=== PATIENT | female | born 1960 | race Caucasian/White ===

== ENCOUNTER 2020-12-20 17:05 | Inpatient (IN) | payer MEDICAID, SELFPAY ==
--- NOTE | ~2020-12-20 | CT_ITS ---
EXAMINATION: CT ABDOMEN AND PELVIS WITHOUT CONTRAST CLINICAL INFORMATION: Abdominal pain. Bowel obstruction. COMPARISON: None TECHNIQUE: Multidetector volumetric imaging was performed from the superior aspect of the liver through the pubic symphysis. Sagittal and coronal reformatted images were obtained on the technologist's workstation. This CT examination was performed using dose optimization techniques as appropriate, variously including the following: *Automated exposure control *Adjustment of mA and/or kV according to patient size (this includes techniques or standardized protocols for targeted exams where dose is matched to indication/reason for exam; i.e. extremities or head) *Use of iterative reconstruction technique DLP: 931 mGy-cm FINDINGS: LUNG BASES: The visualized lung bases are unremarkable. LIVER, GALLBLADDER, AND BILIARY TREE: The liver is normal in size, shape, and attenuation. No focal hepatic lesion or biliary ductal dilatation is present. Status post cholecystectomy. PANCREAS: Unremarkable. SPLEEN: Unremarkable. ADRENAL GLANDS: Unremarkable. KIDNEYS AND URETERS: The kidneys are normal in size, shape, and attenuation. No hydronephrosis, hydroureter, or calculi seen. No perinephric stranding. BLADDER: Unremarkable. GASTROINTESTINAL TRACT: There is fecal impaction in the rectum sigmoid. At the level the hips the colon measures 9.7 cm transverse and is impacted with large volume of stool. There is mild thickening of the bowel wall and there is edema in the presacral space. These changes suggest stercoral colitis. There is a large volume of stool throughout the colon. The sigmoid colon is redundant and distended to a diameter about 8 cm without bowel wall edema. Indeed there is no other area of bowel wall edema or thickening within in the lower pelvis. The cecum measures 6 cm transverse. No dilatation of the small bowel. There is a surgical anastomosis of the mid small bowel. Status post gastric bypass surgery. There is a small hiatal hernia. The appendix is not visualized. ABDOMINAL WALL: No ventral wall hernia. Surgical clips at the mid abdominal wall. Soft tissue calcifications in the gluteal areas bilaterally involving the subcutaneous tissue likely injection granulomas. LYMPH NODES: Normal. VASCULAR: Unremarkable. PELVIC VISCERA: Unremarkable. OSSEOUS STRUCTURES: Multilevel degenerative spondylosis of the spine. CT/CT abdomen pelvis wo con IMPRESSION: 1. Fecal impaction with evidence of stercoral colitis at the rectum sigmoid. Distended colon with large volume of stool and gas. 2. Status post gastric bypass surgery. 3. Status post Cholecystectomy.
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
[2020-12-20 17:32] VITALS: BP 136/89; BP 138/70; BP 142/78; PULSE 77; PULSE 80; PULSE 88; RESP 14; RESP 20; TEMP 37.9; O2SAT 97; O2SAT 98; BMI 34.4
[2020-12-20 18:27] LABS: MANUAL DIFF FLAG NO
[2020-12-20 18:43] LABS: INTERNATIONAL NORM RATIO 1.1 (0.9-1.1); Prothrombin Time 12.7 SEC (10.8-13.0)
[2020-12-20 18:44] LABS: Basophils Absolute Auto 0.1 X10*3/uL (0.0-0.2); Basophils Percent Auto 0.5 % (0-2); Eosinophils Percent Auto 0.4 % (0-4); Hematocrit 35.5 % (37-47); Hemoglobin 11.1 g/dl (12.0-16.0); Imm Gran Abs Auto 0.04 X10*3/uL (0.00-0.03); Imm Gran Pct Auto 0.4 % (0.0-0.4); Lymphocytes Absolute Auto 2.8 X10*3/uL (1.2-4.9); Lymphocytes Percent Auto 30.6 % (20-40); Mean Corpuscular HGB Conc 31.3 g/dl (31.0-35.0); Mean Corpuscular Hemoglobin 25.3 pg (27.0-33.0); Mean Corpuscular Volume 81.1 fL (80-98); Mean Platelet Volume 9.8 fL (9.4-12.3); Monocytes Absolute Auto 0.9 X10*3/uL (0.1-1.2); Monocytes Percent Auto 10.3 % (2-11); Neutrophils Absolute Auto 5.3 X10*3/uL (2.0-8.3); Neutrophils Percent Auto 57.8 % (45-73); Platelet Count 385 X10*3/uL (160-400); Red Blood Count 4.38 X10*6/uL (4.20-5.50); Red Cell Distribution Width 16.1 % (11.0-16.0); White Blood Count 9.2 X10*3/uL (4.8-10.8)
[2020-12-20 18:45] LABS: Partial Thromboplastin Time 37.5 SEC (24.1-38.0)
[2020-12-20 18:49] LABS: OBS Int Ctl Valid YES; OBS1 NEGATIVE (NEGATIVE)
[2020-12-20] MEDS: 0.9 % Sodium Chloride 1,000 ML 999 ML IV (18:53)
[2020-12-20 18:57] LABS: Alanine Aminotransferase 7 U/L (0-31); Albumin Level 3.7 g/dL (3.5-5.0); Alkaline Phosphatase 89 U/L (39-117); Anion Gap 14 (12-20); Aspartate Amino Transferase 8 U/L (5-31); Bilirubin Direct < 0.2 mg/dL (0.0-0.5); Bilirubin Total 0.3 mg/dL (0.0-1.0); Blood Urea Nitrogen 17 mg/dL (9-16); Calcium 8.8 mg/dL (8.4-10.2); Carbon Dioxide 23 mmol/L (22-29); Chloride 107 mmol/L (96-108); Creatinine Clr Calc Pharmacy 105.7; Estimated Glomerular Filt Rate > 60; Glucose Random 114 mg/dL (60-115); Potassium 3.4 mmol/L (3.3-5.1); Sodium 141 mmol/L (135-145)
[2020-12-20 19:35] LABS: Lipase 17 U/L (8-78)
[2020-12-20] MEDS: Pantoprazole Sodium 40 MG/10 ML VIAL 80 MG IVPUSH (19:36)
--- NOTE | 2020-12-20 19:37 | PC.NURSE ---
pt difficult stick, iv inserted, labs drawn, ivf running per order, pt medicated per order, electronic device monitor nsr 80s, vss, will continue to monitor.
[2020-12-20 19:45] LABS: COVID-19 Test Negative (Negative)
[2020-12-20 20:39] VITALS: BP 145/89; PULSE 79; RESP 14; O2SAT 95
[2020-12-20] MEDS: LORazepam 2 MG/ML VIAL 1 MG IVPUSH (21:21)
--- NOTE | 2020-12-20 21:21 | PC.NURSE ---
patient medicated per order
--- NOTE | 2020-12-20 21:41 | PM.IMHP ---
History of Present Illness Date of Service: 12/20/20 Chief Complaint: Coffee-ground emesis 60-year-old female with a past medical history of cerebral palsy, cognitive delay, obesity, schizoaffective disorder, borderline personality disorder, history of paralytic ileus, migraines, GERD, history of chronic back pain/leg pain, asthma, anemia, history of recurrent intertrigo, urinary incontinence, dysphagia, history of esophagitis, history of gastric body erosions, peptic ulcer disease status post Billroth procedure presented to the hospital today with a chief complaint of coffee-ground emesis. Patient is a poor historian. Most of the history obtained from the ER staff and records. Tried to reach the patient's longterm facility [facility]; I also called patient's guardian Milla, left voice message. Per ER team patient had like 4 episodes of coffee-ground emesis; patient mentions she has abdominal discomfort. Appears to be comfortable alert and awake. ER course: Per ER team patient's stool guaiac was negative hemoglobin stable at 11.4. Vitals stable. Given pantoprazole. Admitted to the hospital for further management ER team mentioned that this spoke to Dr. sheehan from Gastroenterology who mention to keep the patient NPO for possible EGD in the morning [facility] Medical History Abscess of toe, right Anemia Asthma Atherosclerosis Borderline personality disorder Cerebral palsy Chronic back pain Dysphagia Esophagitis GERD (gastroesophageal reflux disease) Migraines Obesity Paralytic ileus PVD (peripheral vascular disease) Schizoaffective disorder Urinary incontinence UTI (urinary tract infection) Social History Housing: Senior Living Alcohol intake: never Smoking Status: Unknown if ever smoked service: No Current occupational status: disabled Meds Allergies Allergy/AdvReac Type Severity Reaction Status Date / Time baclofen Allergy Unknown Unknown Unverified 12/20/20 21:50 Iodinated Contrast Media Allergy Unknown Unknown Verified 12/20/20 21:50 Active Medications: Current Medications Generic Name Dose Route Start Last Admin Trade Name Freq PRN Reason Stop Dose Admin Dextrose/Sodium Chloride 1,000 mls @ 100 mls/hr 12/20/20 21:45 D51/2ns IVCONT .Q10H MARK Pantoprazole Sodium 40 mg 12/21/20 06:30 Pantoprazole Sodium 40 Mg/10 Ml Vial IVPUSH BID@0630,1630 [facility] Sodium Chloride 3 ml 12/21/20 00:00 0.9 % Sodium Chloride Flush 3 Ml Syringe IVFLU QSHIFT [facility] Home Medications Medication Instructions Recorded Confirmed Last Taken Type acetaminophen 1,000 mg PO BID PRN 12/20/20 12/20/20 12/20/20 09:00 History benztropine 0.5 mg PO BID 12/20/20 12/20/20 12/20/20 09:00 History bisacodyl 5 mg PO DAILY 12/20/20 12/20/20 12/19/20 19:00 History clonazepam [Klonopin] 0.5 mg PO BID 12/20/20 12/20/20 12/20/20 09:00 History divalproex [Depakote Sprinkles] 500 mg PO BID 12/20/20 12/20/20 12/20/20 09:00 History gabapentin 300 mg PO BID 12/20/20 12/20/20 12/20/20 09:00 History haloperidol 10 mg PO TID 12/20/20 12/20/20 12/20/20 13:00 History mirtazapine [Remeron] 15 mg PO DAILY 12/20/20 12/20/20 12/19/20 History perphenazine 8 mg PO DAILY 12/20/20 12/20/20 12/20/20 13:00 History perphenazine 16 mg PO DAILY 12/20/20 12/20/20 12/20/20 13:00 History Physical Exam Vital Signs and Narrative: Vital Signs: Last Vital Signs Temp 100.2 F 12/20/20 17:32 Pulse 79 12/20/20 20:39 Resp 14 12/20/20 20:39 BP 145/89 H 12/20/20 20:39 Pulse Ox 95 12/20/20 20:39 Body Mass Index 34.4 Gen: Appears be in no acute distress HEENT: NCAT, Moist mucosa. Pulmonary: Vesicular breath sounds, fair air entry CVS: Normal S1-S2 Abdomen: BS+, Soft, Nontender Extremities: Warm well perfused Neuro: Alert and awake. Results Labs CBC and Chem 7: 12/24/20 04:11 12/23/20 06:16 Labs: Laboratory Results - last 24 hr 12/20/20 12/20/20 12/20/20 18:21 18:21 18:21 MCV 81.1 MCH 25.3 L MCHC 31.3 RDW 16.1 H Plt Count 385 MPV 9.8 Immature Gran % (Auto) 0.4 Neut % (Auto) 57.8 Lymph % (Auto) 30.6 [place] % (Auto) 10.3 Eos % (Auto) 0.4 Baso % (Auto) 0.5 Lymph # (Auto) 2.8 [place] # (Auto) 0.9 Eos # (Auto) 0.0 Baso # (Auto) 0.1 Abs Immat Gran (auto) 0.04 H Absolute Neuts (auto) 5.3 Absolute Nucleated RBC 0.000 Nucleated RBC % (auto) 0.0 PT 12.7 INR 1.1 APTT 37.5 Anion Gap 14 Estim Creat Clear Calc 105.7 Estimated GFR > 60 Random Glucose 114 Calcium 8.8 Total Bilirubin 0.3 Direct Bilirubin < 0.2 AST 8 ALT 7 Alkaline Phosphatase 89 Total Protein 6.0 L Albumin 3.7 Lipase 17 Stool Occult Blood COVID-19 (INGA) COVID-19 [employer] Com Blood Type Antibody Screen 12/20/20 12/20/20 12/20/20 18:21 18:27 19:16 MCV MCH MCHC RDW Plt Count MPV Immature Gran % (Auto) Neut % (Auto) Lymph % (Auto) [place] % (Auto) Eos % (Auto) Baso % (Auto) Lymph # (Auto) [place] # (Auto) Eos # (Auto) Baso # (Auto) Abs Immat Gran (auto) Absolute Neuts (auto) Absolute Nucleated RBC Nucleated RBC % (auto) PT INR APTT Anion Gap Estim Creat Clear Calc Estimated GFR Random Glucose Calcium Total Bilirubin Direct Bilirubin AST ALT Alkaline Phosphatase Total Protein Albumin Lipase Stool Occult Blood NEGATIVE COVID-19 (INGA) Negative COVID-19 Clin Com See Note Blood Type O Positive Antibody Screen NEGATIVE Assessment and Plan (1) Coffee ground emesis: Status: Acute 60-year-old female with a past medical history of cerebral palsy, cognitive delay, mostly bed-bound, history of schizoaffective disorder, bipolar disorder, GERD, gastric body erosions, history of peptic ulcer disease status post Billroth procedure, history of chronic back pain/leg pain, history of paralytic ileus, asthma, migraine, history of UTIs presented to the hospital with a chief complaint of coffee-ground emesis. Coffee-ground emesis: Patient did not have any further episodes in the ER. H&H stable. Vitals stable. Continue IV ppi. Gastroenterology notified. NPO. IV fluids. Stool guaiac negative per ER CT abdomen pending Benign abdominal examination Hemoglobin on presentation 11.1 Serial H&H History of dysphagia: Patient is currently NPO. Speech and swallow eval. Patient on puree Diet at the care home. History of schizoaffective disorder/bipolar disorder: Continue home medications. pt is on haldol 10mg TID; EKG to check qtc Code status: Presumed full code. Patient's paperwork from the care home also mentioned full code. I tried to reach the patient's guardian Milla [phone] to reach, left voice message
--- NOTE | 2020-12-20 22:55 | PC.NURSE ---
called floor to give report, nursing staff to call back
[2020-12-20] MEDS: Dextrose 5 % and 0.45 % NaCl 1,000 ML 100 ML IVCONT (23:22)
[2020-12-21] VITALS (12 sets, daily range): BP systolic 92–142; BP diastolic 54–88; PULSE 57–93; RESP 16–20; TEMP 35.8–36.9; O2SAT 90–100; BMI 34.4
--- NOTE | 2020-12-21 | ECG_ITS ---
Test Reason : CK QTC Blood Pressure : / mmHG Vent. Rate : 061 BPM Atrial Rate : 061 BPM P-R Int : 130 ms QRS Dur : 090 ms QT Int : 452 ms P-R-T Axes : 055 008 010 degrees QTc Int : 455 ms Normal sinus rhythm Minimal voltage criteria for LVH, may be normal variant ST & T wave abnormality, consider anterior ischemia Abnormal ECG No previous ECGs available Referred By: Raul Guzman Electronically Signed By:Marquez Davila
[2020-12-21] MEDS: Pantoprazole Sodium 40 MG/10 ML VIAL IVPUSH ×2 (05:13→15:53)
--- NOTE | 2020-12-21 09:43 | MHC.CM.PN ---
Patient left a detailed message for Patient's Legal Guardian/Milla @ [phone]. Patient was formerly a LTC Resident at [facility] and when [facility] closed, she is now a LTC Resident @ [facility] (formerly [facility] CM has initiated and will follow for dc planning.[facility] paperwork is on the chart.
[2020-12-21] MEDS: Dextrose 5 % and 0.45 % NaCl 1,000 ML 100 ML IVCONT ×3 (10:01→23:16)
[2020-12-21] MEDS: 0.9 % Sodium Chloride Flush 3 ML SYRINGE IVFLUSH ×2 (10:01→15:54)
[2020-12-21] MEDS: bisacodyL 10 MG SUPP.RECT PR (10:01)
[2020-12-21] MEDS: Benztropine Mesylate 0.5 MG TABLET PO ×2 (10:25→20:23)
[2020-12-21] MEDS: Mirtazapine 15 MG TABLET PO (10:26)
[2020-12-21] MEDS: clonazePAM 0.5 MG TABLET PO ×2 (10:26→20:20)
[2020-12-21] MEDS: HaloperidoL 5 MG TABLET 10 MG PO ×2 (10:26→20:19)
[2020-12-21] MEDS: Perphenazine 8 MG TABLET 16 MG PO (10:29)
[2020-12-21] MEDS: Gabapentin 300 MG CAPSULE PO ×2 (10:29→20:20)
[2020-12-21] MEDS: Perphenazine 8 MG TABLET PO (10:30)
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
[2020-12-21 11:17] LABS: Hematocrit 33.2 % (37-47); Hemoglobin 9.9 g/dl (12.0-16.0); Mean Corpuscular HGB Conc 29.8 g/dl (31.0-35.0); Mean Corpuscular Hemoglobin 24.6 pg (27.0-33.0); Mean Corpuscular Volume 82.4 fL (80-98); NRBC Pct Auto 0.3 /100WBC (0.0-0.2); Platelet Count 320 X10*3/uL (160-400); Red Blood Count 4.03 X10*6/uL (4.20-5.50); Red Cell Distribution Width 16.1 % (11.0-16.0)
--- NOTE | 2020-12-21 11:45 | PM.EVENT ---
Event Note Date of Service: 12/21/20 Event Note: GI Consult-Full note dictated-Hx via RN, EMR, and Restaurant Expeditor Milla Duque, her guardian [phone]) or [phone](W). Imp: UGI Bleed. Presently stable. No further vomiting. Stools are brown. Abdominal exam is soft and NT, but mildly distended and tympanitic. She is having soft BM's and did receive an enema this AM. She was on omeprazole at the retirement. Her bleeding seems to have stopped. Probable bleeding from esophagitis, Jennie-Thayer tear, or PUD. Her CT describes a possible gastric bypass surgery so this may also represent an anastomotic ulcer. Rec: EGD with MAC by me or Dr. Cunningham today. Full consent obtained from her guardian, including risks of bleeding and perforation. Continue to follow Hgb, continue PPI. Continue enemas re: findings of constipation/impaction/colon distention. Agree with surgical consult. Thanks
[2020-12-21 11:52] LABS: Anion Gap 12 (12-20); Blood Urea Nitrogen 17 mg/dL (9-16); Calcium 8.6 mg/dL (8.4-10.2); Carbon Dioxide 22 mmol/L (22-29); Chloride 110 mmol/L (96-108); Creatinine Clr Calc Pharmacy 114.3; Estimated Glomerular Filt Rate > 60; Glucose Random 106 mg/dL (60-115); Potassium 3.3 mmol/L (3.3-5.1); Sodium 141 mmol/L (135-145)
--- NOTE | 2020-12-21 11:58 | PM.CNGS ---
History of Present Illness Consult details Consult date: 12/21/20 Requesting physician: Zurdo Kapoor Narrative: 60-year-old female patient admitted to [facility] after developing coffee-ground emesis. She has a past history of cerebral palsy, cognitive delay, schizoaffective disorder, borderline personality disorder in previous history of paralytic ileus an apparent previous abdominal surgery including a possible Vincenzo-en-Y gastrojejunostomy. Patient is a poor historian is not exactly clear in the timing of her condition. She underwent a workup in the emergency department including a CT of the abdomen and pelvis which indicated a large stool burden within the rectum. Surgical consultation was requested for disimpaction. Review of Systems Review of Systems: Yes Unobtainable due to mental condition PMFSH Past Medical History Medical History Abscess of toe, right Anemia Asthma Atherosclerosis Borderline personality disorder Cerebral palsy Chronic back pain Dysphagia Esophagitis GERD (gastroesophageal reflux disease) Migraines Obesity Paralytic ileus PVD (peripheral vascular disease) Schizoaffective disorder Urinary incontinence UTI (urinary tract infection) Social History Social History Housing: Residential Unable to assess alcohol history related to: Unknown Alcohol intake: never Smoking Status: Unknown if ever smoked Smoked in Last 30 Days: No Use of substances other than those prescribed or required for medical reasons: No Have you been hit, kicked, punched, or otherwise hurt by someone within the past year? If so, by whom?: No Do you feel safe in your current relationship?: Yes Is there a partner from a previous relationship who is making you feel unsafe now?: Yes Are you made to feel afraid or neglected: No Advance Directives: No Advance Directives Information Provided: No Do you have thoughts of harming others: None Do you have a plan to hurt others: No Plan Recently lost weight without trying: Unsure service: No Current occupational status: disabled Meds Allergies Allergy/AdvReac Type Severity Reaction Status Date / Time baclofen Allergy Unknown Unknown Unverified 12/20/20 21:50 Iodinated Contrast Media Allergy Unknown Unknown Verified 12/20/20 21:50 Active Medications: Current Medications Generic Name Dose Route Start Last Admin Trade Name Freq PRN Reason Stop Dose Admin Benztropine Mesylate 0.5 mg 12/21/20 09:00 12/21/20 10:25 Benztropine Mesylate 0.5 Mg Tablet PO 0.5 mg BID MARK Administration Clonazepam 0.5 mg 12/21/20 09:00 12/21/20 10:26 Clonazepam 0.5 Mg Tablet PO 0.5 mg BID MARK Administration Divalproex Sodium 500 mg 12/21/20 09:00 12/21/20 10:30 Divalproex Sodium Sprinkles 125 Mg Cap PO Not Given BID MARK Gabapentin 300 mg 12/21/20 09:00 12/21/20 10:29 Gabapentin 300 Mg Capsule PO 300 mg BID MARK Administration Haloperidol 10 mg 12/21/20 09:00 12/21/20 10:26 Haloperidol 5 Mg Tablet PO 10 mg TID MARK Administration Dextrose/Sodium Chloride 1,000 mls @ 100 mls/hr 12/20/20 21:45 12/21/20 10:01 D51/2ns IVCONT 100 mls/hr .Q10H MARK Administration Mirtazapine 15 mg 12/21/20 09:00 12/21/20 10:26 Mirtazapine 15 Mg Tablet PO 15 mg DAILY MARK Administration Pantoprazole Sodium 40 mg 12/21/20 06:30 12/21/20 05:13 Pantoprazole Sodium 40 Mg/10 Ml Vial IVPUSH 40 mg BID@0630,1630 MARK Administration Perphenazine 8 mg 12/21/20 09:00 12/21/20 10:30 Perphenazine 8 Mg Tablet PO 8 mg DAILY MARK Administration Perphenazine 16 mg 12/21/20 09:00 12/21/20 10:29 Perphenazine 8 Mg Tablet PO 16 mg DAILY MARK Administration Sodium Chloride 3 ml 12/21/20 00:00 12/21/20 10:01 0.9 % Sodium Chloride Flush 3 Ml Syringe IVFLUSH 3 ml QSHIFT MARK Administration Home Medications Medication Instructions Recorded Confirmed Last Taken Type acetaminophen [Tylenol Extra 1,000 mg PO BID PRN 12/20/20 12/20/20 12/20/20 09:00 History Strength] benztropine [Cogentin] 0.5 mg PO BID 12/20/20 12/20/20 12/20/20 09:00 History bisacodyl 5 mg PO DAILY 12/20/20 12/20/20 12/19/20 19:00 History clonazepam [Klonopin] 0.5 mg PO BID 12/20/20 12/20/20 12/20/20 09:00 History divalproex [Depakote Sprinkles] 500 mg PO BID 12/20/20 12/20/20 12/20/20 09:00 History gabapentin 300 mg PO BID 12/20/20 12/20/20 12/20/20 09:00 History haloperidol [Haldol] 10 mg PO TID 12/20/20 12/20/20 12/20/20 13:00 History mirtazapine [Remeron] 15 mg PO DAILY 12/20/20 12/20/20 12/19/20 History omeprazole 20 mg PO BID 12/20/20 12/20/20 12/20/20 09:00 History perphenazine 8 mg PO DAILY 12/20/20 12/20/20 12/20/20 13:00 History perphenazine 16 mg PO DAILY 12/20/20 12/20/20 12/20/20 13:00 History Physical Exam Vital Signs: Vital Signs: Last Vital Signs Temp 98 F 12/21/20 07:14 Pulse 64 12/21/20 07:14 Resp 19 12/21/20 07:14 BP 113/73 12/21/20 07:14 Pulse Ox 99 12/21/20 07:14 Body Mass Index 34.4 Const: General: cooperative, no acute distress and awake Nutritional Appearance: obese Limitations: behavioral limitations Neck: Neck: Yes normal visual inspection and Yes supple Resp: Effort & Inspection: normal respiratory effort, no stridor, not tachypneic and no tracheal deviation Auscultation: no wheezes GI: Inspection: Yes distended, Yes Abdominal panniculus present and Yes scar Palpation (GI): nontender, no guarding and not rigid Percussion: Yes normal to percussion Skin: General skin exam: no rashes or lesions noted Extrem: General: Yes edema Results Labs Result diagrams: 12/21/20 10:57 12/21/20 10:57 Labs: Abnormal lab results 12/20/20 12/20/20 12/21/20 Range/Units 18:21 18:21 10:57 RBC 4.03 L (4.20-5.50) X10*6/uL Hgb 11.1 L 9.9 L (12.0-16.0) g/dl Hct 35.5 L 33.2 L (37-47) % MCH 25.3 L 24.6 L (27.0-33.0) pg MCHC 29.8 L (31.0-35.0) g/dl RDW 16.1 H 16.1 H (11.0-16.0) % Abs Immat Gran (auto) 0.04 H (0.00-0.03) X10*3/uL Absolute Nucleated RBC 0.020 H (0.0-0.012) X10*3/uL Nucleated RBC % (auto) 0.3 H (0.0-0.2) /100WBC Chloride (96-108) mmol/L BUN 17 H (9-16) mg/dL Creatinine (0.5-1.4) mg/dL Total Protein 6.0 L (6.5-8.0) g/dL 12/21/20 Range/Units 10:57 RBC (4.20-5.50) X10*6/uL Hgb (12.0-16.0) g/dl Hct (37-47) % MCH (27.0-33.0) pg MCHC (31.0-35.0) g/dl RDW (11.0-16.0) % Abs Immat Gran (auto) (0.00-0.03) X10*3/uL Absolute Nucleated RBC (0.0-0.012) X10*3/uL Nucleated RBC % (auto) (0.0-0.2) /100WBC Chloride 110 H (96-108) mmol/L BUN 17 H (9-16) mg/dL Creatinine 0.49 L (0.5-1.4) mg/dL Total Protein (6.5-8.0) g/dL Short CBC 12/20/20 12/21/20 Range/Units 18:21 10:57 WBC 9.2 7.0 (4.8-10.8) X10*3/uL Hgb 11.1 L 9.9 L (12.0-16.0) g/dl Hct 35.5 L 33.2 L (37-47) % Plt Count 385 320 (160-400) X10*3/uL BMP 12/20/20 12/21/20 18:21 10:57 Sodium 141 141 Potassium 3.4 3.3 Chloride 107 110 H Carbon Dioxide 23 22 BUN 17 H 17 H Creatinine 0.53 0.49 L Calcium 8.8 8.6 Liver Function 12/20/20 Range/Units 18:21 Total Bilirubin 0.3 (0.0-1.0) mg/dL Direct Bilirubin < 0.2 (0.0-0.5) mg/dL AST 8 (5-31) U/L ALT 7 (0-31) U/L Alkaline Phosphatase 89 (39-117) U/L Albumin 3.7 (3.5-5.0) g/dL All other labs normal. EXAMINATION: CT ABDOMEN AND PELVIS WITHOUT CONTRAST CLINICAL INFORMATION: Abdominal pain. Bowel obstruction. COMPARISON: None TECHNIQUE: Multidetector volumetric imaging was performed from the superior aspect of the liver through the pubic symphysis. Sagittal and coronal reformatted images were obtained on the technologist's workstation. This CT examination was performed using dose optimization techniques as appropriate, variously including the following: *Automated exposure control *Adjustment of mA and/or kV according to patient size (this includes techniques or standardized protocols for targeted exams where dose is matched to indication/reason for exam; i.e. extremities or head) *Use of iterative reconstruction technique DLP: 931 mGy-cm FINDINGS: LUNG BASES: The visualized lung bases are unremarkable. LIVER, GALLBLADDER, AND BILIARY TREE: The liver is normal in size, shape, and attenuation. No focal hepatic lesion or biliary ductal dilatation is present. Status post cholecystectomy. PANCREAS: Unremarkable. SPLEEN: Unremarkable. ADRENAL GLANDS: Unremarkable. KIDNEYS AND URETERS: The kidneys are normal in size, shape, and attenuation. No hydronephrosis, hydroureter, or calculi seen. No perinephric stranding. BLADDER: Unremarkable. GASTROINTESTINAL TRACT: There is fecal impaction in the rectum sigmoid. At the level the hips the colon measures 9.7 cm transverse and is impacted with large volume of stool. There is mild thickening of the bowel wall and there is edema in the presacral space. These changes suggest stercoral colitis. There is a large volume of stool throughout the colon. The sigmoid colon is redundant and distended to a diameter about 8 cm without bowel wall edema. Indeed there is no other area of bowel wall edema or thickening within in the lower pelvis. The cecum measures 6 cm transverse. No dilatation of the small bowel. There is a surgical anastomosis of the mid small bowel. Status post gastric bypass surgery. There is a small hiatal hernia. The appendix is not visualized. ABDOMINAL WALL: No ventral wall hernia. Surgical clips at the mid abdominal wall. Soft tissue calcifications in the gluteal areas bilaterally involving the subcutaneous tissue likely injection granulomas. LYMPH NODES: Normal. VASCULAR: Unremarkable. PELVIC VISCERA: Unremarkable. OSSEOUS STRUCTURES: Multilevel degenerative spondylosis of the spine. CT/CT abdomen pelvis wo con IMPRESSION: 1. Fecal impaction with evidence of stercoral colitis at the rectum sigmoid. Distended colon with large volume of stool and gas. 2. Status post gastric bypass surgery. 3. Status post Cholecystectomy. Dictated By:SIA MARTINEZ MDSigned By:<Electronically signed by SIA MARTINEZ MD in OV>12/20/20 5490 Assessment and Plan (1) Fecal impaction of rectum: Status: Acute 60-year-old female patient with multiple medical problems and a long history of paralytic ileus now presenting with coffee-ground emesis found to have a large stool burden in the rectum suggestive of a fecal impaction. I discussed this finding with the patient and she expressed understanding. I recommended a trial of disimpaction and she agrees to proceeding. I will return later today to attempt fecal disimpaction. (2) Proctitis: Status: Acute
--- NOTE | 2020-12-21 12:45 | MHC.SLORD ---
Speech Language Pathology Order Status: Order for bedside dysphagia evaluation received. VEGETABLE HARVEST WORKER spoke with RN this morning. Per RN, patient is NPO for EGD. Was not yet seen by [email or web address]. VEGETABLE HARVEST WORKER to check in later this afternoon RE: status of order.
--- NOTE | 2020-12-21 14:14 | CONS_ITS ---
DATE OF SERVICE: 12/21/2020 REASON FOR CONSULTATION: Upper GI bleeding. HISTORY OF PRESENT ILLNESS: This has been obtained from the patient's nurse, medical record, and from her guardian. The patient is a 60-year-old female, who resides at a skilled nursing with an underlying diagnosis of cerebral palsy and schizoaffective disorder. According to the chart, she has had a history of GI bleeding in the past, but no details are available in that regard. According to the CAT scan report, she may have had a gastric bypass as well, but again no definitive details are known in that regard. In any event, she had some episodes of coffee-grounds emesis at the skilled nursing and was transferred to the ER. In the ER, she had no further vomiting. She was hemodynamically stable. Subsequent to admission, she has had no further vomiting. Her stools have been brown and without any melena nor hematochezia. Her CAT scan did show evidence of some impaction and colonic distention. She did receive at least 1 enema here. According to the nurse, she has been putting out bowel movements, which were soft and again without any sign of bleeding. She has remained hemodynamically stable. Her blood count on arrival was 11.1 and this morning is 9.9. MEDICATIONS: Her medications at the skilled nursing included omeprazole and I do not see any aspirin nor NSAIDs on her medication list. Her medications here in the hospital include IV Protonix, Cogentin, Dulcolax suppository, clonazepam, Depakote, gabapentin, Haldol, Ativan p.r.n., Remeron, and Trilafon. PAST MEDICAL HISTORY: Reported schizoaffective disorder. Asthma. Cerebral palsy. History of anemia. Reflux. Obesity. Peripheral vascular disease. Again, according to the CAT scan, she may have had a gastric bypass, but there was no definitive documentation of that. SOCIAL HISTORY: She lives in a skilled nursing. She does not smoke nor use alcohol. FAMILY HISTORY: Not available. REVIEW OF SYSTEMS: Not available. PHYSICAL EXAMINATION: GENERAL: The patient is alert and comfortable appearing female, in no distress. She does answer some questions, but is not a good historian at all. SKIN: Warm and dry. HEENT: Anicteric sclerae. NECK: Supple. CHEST: Clear. CARDIAC: Normal S1 and S2. ABDOMEN: Soft with some diminished bowel sounds. The abdomen is nontender, but it is mildly distended and somewhat tympanitic. LABORATORY DATA: As above. White blood cell count is 7000. Normal electrolytes. BUN was 17 yesterday and is 17 today. Creatinine 0.5. LFTs are normal. Albumin 3.7, lipase 17. Her CAT scan from yesterday describes a fecal impaction with some predominantly left-sided colonic distention up to 9.7 cm with some evidence of possible edema of the colon wall. The cecum measured 6 cm. There was no free air. She is status post cholecystectomy according to the CAT scan as well. IMPRESSION: Given the patient's presentation with this upper GI bleeding, this could represent upper GI bleeding from esophagitis, Jennie-Thayer tear, ulcer disease, and possible anastomotic ulcer if indeed she had a gastric bypass. At this point, she appears stable. However, I would recommend upper endoscopy prior to her discharge to have a better idea how best to treat her long-term. This has been discussed with her guardian, Navigation Teacher Milla Duque, and full consent has been obtained from her for the upper endoscopy, including risks of bleeding and perforation. I did advise her that this would be done either by myself or Dr. Cunningham and will be done with monitored anesthesia care. In the meantime, I would continue her proton pump inhibitor and follow her hemoglobin. In regard to the finding of the fecal impaction, I would continue bowel cleanouts with enemas and suppositories. Once we have done her upper endoscopy and things are stable, we might be able to start her on some oral bowel cleanout as well. I would agree with a surgical consultation if need be for any possible need for disimpaction. Again, this has all been reviewed with her legal guardian, wheel worker, Milla Duque. Her best number to reach her is the mobile number, . Her work number is [phone]. Thank you for this consultation. MD SHAUNA Degroot/DUSTIN / [phone] JENNI
--- NOTE | 2020-12-21 14:16 | HO.ANESPROP2 ---
[facility] Active Problems Active Problems: All Active Problems (Updated 12/21/20 @ 13:07 by Ricardo Le MD) Proctitis (Acute) Fecal impaction of rectum (Acute) Coffee ground emesis (Acute) Past Medical History Medical History Abscess of toe, right Anemia Asthma Atherosclerosis Borderline personality disorder Cerebral palsy Chronic back pain Dysphagia Esophagitis GERD (gastroesophageal reflux disease) Migraines Obesity Paralytic ileus PVD (peripheral vascular disease) Schizoaffective disorder Urinary incontinence UTI (urinary tract infection) Social History Social History Housing: Residential Unable to assess alcohol history related to: Unknown Alcohol intake: never Smoking Status: Unknown if ever smoked Smoked in Last 30 Days: No Use of substances other than those prescribed or required for medical reasons: No Have you been hit, kicked, punched, or otherwise hurt by someone within the past year? If so, by whom?: No Do you feel safe in your current relationship?: Yes Is there a partner from a previous relationship who is making you feel unsafe now?: Yes Are you made to feel afraid or neglected: No Advance Directives: No Advance Directives Information Provided: No Do you have thoughts of harming others: None Do you have a plan to hurt others: No Plan Recently lost weight without trying: Unsure service: No Current occupational status: disabled Meds Allergies Allergy/AdvReac Type Severity Reaction Status Date / Time baclofen Allergy Unknown Unknown Unverified 12/20/20 21:50 Iodinated Contrast Media Allergy Unknown Unknown Verified 12/20/20 21:50 Active Medications: Current Medications Generic Name Dose Route Start Last Admin Trade Name Freq PRN Reason Stop Dose Admin Benztropine Mesylate 0.5 mg 12/21/20 09:00 12/21/20 10:25 Benztropine Mesylate 0.5 Mg Tablet PO 0.5 mg BID MARK Administration Clonazepam 0.5 mg 12/21/20 09:00 12/21/20 10:26 Clonazepam 0.5 Mg Tablet PO 0.5 mg BID MARK Administration Divalproex Sodium 500 mg 12/21/20 09:00 12/21/20 10:30 Divalproex Sodium Sprinkles 125 Mg PO Not Given BID MARK Gabapentin 300 mg 12/21/20 09:00 12/21/20 10:29 Gabapentin 300 Mg Capsule PO 300 mg BID MARK Administration Haloperidol 10 mg 12/21/20 09:00 12/21/20 10:26 Haloperidol 5 Mg Tablet PO 10 mg TID MARK Administration Dextrose/Sodium Chloride 1,000 mls @ 100 mls/hr 12/20/20 21:45 12/21/20 10:01 D51/2ns IVCONT 100 mls/hr .Q10H MARK Administration Mirtazapine 15 mg 12/21/20 09:00 12/21/20 10:26 Mirtazapine 15 Mg Tablet PO 15 mg DAILY MARK Administration Pantoprazole Sodium 40 mg 12/21/20 06:30 12/21/20 05:13 Pantoprazole Sodium 40 Mg/10 Ml Vial IVPUSH 40 mg BID@0630,1630 MARK Administration Perphenazine 8 mg 12/21/20 09:00 12/21/20 10:30 Perphenazine 8 Mg Tablet PO 8 mg DAILY MARK Administration Perphenazine 16 mg 12/21/20 09:00 12/21/20 10:29 Perphenazine 8 Mg Tablet PO 16 mg DAILY MARK Administration Sodium Chloride 3 ml 12/21/20 00:00 12/21/20 10:01 0.9 % Sodium Chloride Flush 3 Ml Syringe IVFLUSH 3 ml QSHIFT MARK Administration Home Medications Medication Instructions Recorded Confirmed Last Taken Type acetaminophen [Tylenol Extra 1,000 mg PO BID PRN 12/20/20 12/20/20 12/20/20 09:00 History Strength] benztropine [Cogentin] 0.5 mg PO BID 12/20/20 12/20/20 12/20/20 09:00 History bisacodyl 5 mg PO DAILY 12/20/20 12/20/20 12/19/20 19:00 History clonazepam [Klonopin] 0.5 mg PO BID 12/20/20 12/20/20 12/20/20 09:00 History divalproex [Depakote Sprinkles] 500 mg PO BID 12/20/20 12/20/20 12/20/20 09:00 History gabapentin 300 mg PO BID 12/20/20 12/20/20 12/20/20 09:00 History haloperidol [Haldol] 10 mg PO TID 12/20/20 12/20/20 12/20/20 13:00 History mirtazapine [Remeron] 15 mg PO DAILY 12/20/20 12/20/20 12/19/20 History omeprazole 20 mg PO BID 12/20/20 12/20/20 12/20/20 09:00 History perphenazine 8 mg PO DAILY 12/20/20 12/20/20 12/20/20 13:00 History perphenazine 16 mg PO DAILY 12/20/20 12/20/20 12/20/20 13:00 History Exam Exam Date and Time: December 21, 2020 1416 Height,Weight and Vital Signs: Height 5 ft Weight 80.1 kg Last Vital Signs Temp 98.1 F 12/21/20 13:31 Pulse 65 12/21/20 13:31 Resp 18 12/21/20 13:31 BP 138/70 12/21/20 13:31 Pulse Ox 99 12/21/20 13:31 Pertinent Lab Results Pertinent Lab Results: Laboratory Tests 12/20/20 12/20/20 12/20/20 18:21 18:21 18:21 WBC 9.2 RBC 4.38 Hgb 11.1 L Hct 35.5 L MCV 81.1 MCH 25.3 L MCHC 31.3 RDW 16.1 H Plt Count 385 MPV 9.8 Immature Gran % (Auto) 0.4 Neut % (Auto) 57.8 Lymph % (Auto) 30.6 [place] % (Auto) 10.3 Eos % (Auto) 0.4 Baso % (Auto) 0.5 Lymph # (Auto) 2.8 [place] # (Auto) 0.9 Eos # (Auto) 0.0 Baso # (Auto) 0.1 Abs Immat Gran (auto) 0.04 H Absolute Neuts (auto) 5.3 Absolute Nucleated RBC 0.000 Nucleated RBC % (auto) 0.0 PT 12.7 INR 1.1 APTT 37.5 Sodium 141 Potassium 3.4 Chloride 107 Carbon Dioxide 23 Anion Gap 14 BUN 17 H Creatinine 0.53 Estim Creat Clear Calc 105.7 Estimated GFR > 60 Random Glucose 114 Calcium 8.8 Total Bilirubin 0.3 Direct Bilirubin < 0.2 AST 8 ALT 7 Alkaline Phosphatase 89 Total Protein 6.0 L Albumin 3.7 Lipase 17 Stool Occult Blood COVID-19 ([facility]) COVID-19 Clin Com Blood Type Antibody Screen 12/20/20 12/20/20 12/20/20 18:21 18:27 19:16 WBC RBC Hgb Hct MCV MCH MCHC RDW Plt Count MPV Immature Gran % (Auto) Neut % (Auto) Lymph % (Auto) [place] % (Auto) Eos % (Auto) Baso % (Auto) Lymph # (Auto) [place] # (Auto) Eos # (Auto) Baso # (Auto) Abs Immat Gran (auto) Absolute Neuts (auto) Absolute Nucleated RBC Nucleated RBC % (auto) PT INR APTT Sodium Potassium Chloride Carbon Dioxide Anion Gap BUN Creatinine Estim Creat Clear Calc Estimated GFR Random Glucose Calcium Total Bilirubin Direct Bilirubin AST ALT Alkaline Phosphatase Total Protein Albumin Lipase Stool Occult Blood NEGATIVE COVID-19 ([facility]) Negative COVID-19 [employer] Com See Note Blood Type O Positive Antibody Screen NEGATIVE 12/21/20 12/21/20 10:57 10:57 WBC 7.0 RBC 4.03 L Hgb 9.9 L Hct 33.2 L MCV 82.4 MCH 24.6 L MCHC 29.8 L RDW 16.1 H Plt Count 320 MPV 10.0 Immature Gran % (Auto) Neut % (Auto) Lymph % (Auto) [place] % (Auto) Eos % (Auto) Baso % (Auto) Lymph # (Auto) [place] # (Auto) Eos # (Auto) Baso # (Auto) Abs Immat Gran (auto) Absolute Neuts (auto) Absolute Nucleated RBC 0.020 H Nucleated RBC % (auto) 0.3 H PT INR APTT Sodium 141 Potassium 3.3 Chloride 110 H Carbon Dioxide 22 Anion Gap 12 BUN 17 H Creatinine 0.49 L Estim Creat Clear Calc 114.3 Estimated GFR > 60 Random Glucose 106 Calcium 8.6 Total Bilirubin Direct Bilirubin AST ALT Alkaline Phosphatase Total Protein Albumin Lipase Stool Occult Blood COVID-19 ([facility]) COVID-19 [employer] Com Blood Type Antibody Screen Airway Mallampati Class: II TM Dist: >3cm Neck ROM: Full Assessment and Plan Assessment Anesthesia Assessment: Anesthesia Plan Discussed and Chart Reviewed Final Anesthetic Review NPO: Yes ASA Class: III Final Preanesthetic Review: No Changes in Pt Med Stat, Meds/Allgs Chart Reviewed, Consent Obtained/Reviewed and Anes Risks/Benef Reviewed Patient Risk: Intermediate Procedure Risk: Low Assessment/Block/Sedation in SS: Assess/Block/Sedation-SS Anesthetic Plan Anesthetic Plan: MAC: Disposition: Standard PACU
--- NOTE | 2020-12-21 14:20 | MHC.SLORD ---
Speech Language Pathology Order Status: TANNERY WORKER checked in with RN. Per RN, patient is away at endoscopy. Per RN, patient is on pureed solids and thin liquids at baseline in SNF.
--- NOTE | 2020-12-21 14:27 | MHC.SHP ---
Pre-Procedural Eval Section A The patient is an INPATIENT: Yes Changes since office visit: No Cold of Flu in the past 2 weeks, No New Medical Problems, No Changes in Medication and No Patient answered all questions The History & Physical has been completed within 30 days and I have reviewed it.: Yes Section B Chief Complaint: Coffee Ground Emesis Allergies: Allergies Allergy/AdvReac Type Severity Reaction Status Date / Time baclofen Allergy Unknown Unknown Unverified 12/20/20 21:50 Iodinated Contrast Media Allergy Unknown Unknown Verified 12/20/20 21:50 Plan I have reviewed the history and physical and performed a pertinent physical examination on my patient. No changes have occurred unless specified.
--- NOTE | 2020-12-21 14:27 | PM.OP ---
Brief Operative Note Date of Service: 12/21/20 Pre-op diagnosis: ugi bleed Post-op diagnosis: other (erosive esophagitis) Procedure: egd Surgeon: Terell Cunningham Anesthesia: MAC Estimated blood loss (mL): 0 Pathology: none sent Condition: stable Disposition: PACU
--- NOTE | 2020-12-21 14:29 | PM.EVENT ---
Event Note Date of Service: 12/21/20 Event Note: egd shows nonbleeding erosive esophagitis and a single 4mm gastric erosion. there appeared to be surgical changes c/w a partial gastrectomy but not a gastric bypass rec restart diet bid ppi x 1 month then daily
--- NOTE | 2020-12-21 15:24 | OP_ITS ---
SURGEON: Terell Cunningham MD INDICATIONS: Upper GI bleeding. PREOPERATIVE DIAGNOSIS: POSTOPERATIVE DIAGNOSIS: PROCEDURE PERFORMED: Upper endoscopy. ESTIMATED BLOOD LOSS: COMPLICATIONS: ANESTHESIA: ASSISTANTS: SPECIMENS: MEDICATIONS: Monitored anesthesia care. DESCRIPTION OF PROCEDURE: History and physical performed. The risks and benefits of the procedure were explained to the patient's guardian and informed consent was obtained. The patient was placed in the left lateral decubitus position. The Olympus video gastroscope was introduced into the esophagus, stomach, and duodenum. Examination was performed and the scope was removed. She tolerated the procedure well and was taken to recovery area in stable condition. FINDINGS: ESOPHAGUS: The esophagus showed linear erosions over the last 2 cm of the esophagus with no active bleeding. STOMACH: The stomach showed a single 5 mm erosion in the body with no stigmata of recent hemorrhage. There was no blood in the stomach. There appeared to be surgical changes consistent with a distal gastrectomy, possibly a Billroth I. No anastomotic ulceration was identified. The small intestine was explored for approximately 5 cm and appeared normal without any blood. IMPRESSION: Erosive esophagitis. RECOMMENDATIONS: 1. Advanced diet. 2. B.i.d. proton pump inhibitor for 1 month, then daily indefinitely. MD BRENDA Chacon/NINGL / [id number]
[2020-12-21 17:15] LABS: Hemoglobin 9.2 g/dl (12.0-16.0)
[2020-12-21] MEDS: Divalproex Sodium Sprinkles 125 MG CAP.DR.SPR 500 MG PO (20:20)
[2020-12-22 01:01] LABS: Hematocrit 32.3 % (37-47); Hemoglobin 9.6 g/dl (12.0-16.0)
[2020-12-22 03:53] VITALS: BP 170/75; PULSE 71; RESP 18; TEMP 36.4; O2SAT 93
[2020-12-22] MEDS: Pantoprazole Sodium 40 MG/10 ML VIAL IVPUSH (05:17)
[2020-12-22 07:21] VITALS: BP 162/73; PULSE 67; RESP 18; TEMP 36.5; O2SAT 98
[2020-12-22] MEDS: Dextrose 5 % and 0.45 % NaCl 1,000 ML 100 ML IVCONT (09:00)
[2020-12-22] MEDS: clonazePAM 0.5 MG TABLET PO ×2 (09:02→20:18)
[2020-12-22] MEDS: Gabapentin 300 MG CAPSULE PO ×2 (09:02→20:19)
[2020-12-22] MEDS: HaloperidoL 5 MG TABLET 10 MG PO ×3 (09:02→20:18)
[2020-12-22] MEDS: Mirtazapine 15 MG TABLET PO (09:02)
[2020-12-22] MEDS: Perphenazine 8 MG TABLET 16 MG PO (09:02)
[2020-12-22] MEDS: Perphenazine 8 MG TABLET PO (09:02)
[2020-12-22] MEDS: Benztropine Mesylate 0.5 MG TABLET PO ×2 (09:02→20:19)
[2020-12-22] MEDS: Divalproex Sodium Sprinkles 125 MG CAP.DR.SPR 500 MG PO ×2 (09:02→20:19)
[2020-12-22] MEDS: 0.9 % Sodium Chloride Flush 3 ML SYRINGE IVFLUSH ×3 (09:13→20:19)
--- NOTE | 2020-12-22 10:34 | HO.POSTANES ---
Post Anesthesia Evaluation Post Anesthesia Evaluation Vital Signs: Vital Signs Temp Pulse Resp BP Pulse Ox 12/22/20 07:21 97.7 F 67 18 162/73 H 98 12/22/20 03:53 97.6 F 71 18 170/75 H 93 12/21/20 23:40 97.7 F 67 18 133/88 97 Anesthesia: Monitored Mental Status: Awake Pain Control: Satisfactory Nausea/Vomiting: None Hydration: Adequate Anesthesia-Related Issues: No Anes. Related Issues
[2020-12-22 11:21] VITALS: BP 148/75; PULSE 70; RESP 18; TEMP 36.2; O2SAT 99
--- NOTE | 2020-12-22 12:54 | P.PNIM_ITS ---
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 Neck supple no JVD. CVS regular rate rhythm, Respiratory lungs clear to auscultation, no respiratory distress, no wheeze, no rhonchi. Gastrointestinal abdomen soft, mild epigastric tenderness to palpation, bowel sounds audible, no guarding , no rigidity. Extremities no edema. Neuro moving all 4 extremity, speech clear. Skin no rash Objective Data Current Medications Generic Name Dose Route Start Last Admin Trade Name Freq PRN Reason Stop Dose Admin Benztropine Mesylate 0.5 mg 12/21/20 09:00 12/22/20 09:02 Benztropine Mesylate 0.5 Mg Tablet PO 0.5 mg BID MARK Administration Clonazepam 0.5 mg 12/21/20 09:00 12/22/20 09:02 Clonazepam 0.5 Mg Tablet PO 0.5 mg BID MARK Administration Divalproex Sodium 500 mg 12/21/20 09:00 12/22/20 09:02 Divalproex Sodium Sprinkles 125 Mg PO 500 mg BID MARK Administration Gabapentin 300 mg 12/21/20 09:00 12/22/20 09:02 Gabapentin 300 Mg Capsule PO 300 mg BID MARK Administration Haloperidol 10 mg 12/21/20 09:00 12/22/20 09:02 Haloperidol 5 Mg Tablet PO 10 mg TID MARK Administration Dextrose/Sodium Chloride 1,000 mls @ 100 mls/hr 12/20/20 21:45 12/22/20 09:00 D51/2ns IVCONT 100 mls/hr .Q10H MARK Administration Mirtazapine 15 mg 12/21/20 09:00 12/22/20 09:02 Mirtazapine 15 Mg Tablet PO 15 mg DAILY MARK Administration Pantoprazole Sodium 40 mg 12/21/20 06:30 12/22/20 05:17 Pantoprazole Sodium 40 Mg/10 Ml Vial IVPUSH 40 mg BID@0630,1630 MARK Administration Perphenazine 8 mg 12/21/20 09:00 12/22/20 09:02 Perphenazine 8 Mg Tablet PO 8 mg DAILY MARK Administration Perphenazine 16 mg 12/21/20 09:00 12/22/20 09:02 Perphenazine 8 Mg Tablet PO 16 mg DAILY MARK Administration Sodium Chloride 3 ml 12/21/20 00:00 12/22/20 09:13 0.9 % Sodium Chloride Flush 3 Ml Syringe IVFLUSH 3 ml QSHIFT MARK Administration Labs CBC & Chem 7: 12/21/20 23:46 12/21/20 10:57 Assessment and Plan (1) Coffee ground emesis: Status: Acute (2) Fecal impaction of rectum: Status: Acute (3) Proctitis: Status: Acute Assessment and Plan: 60 yo F who is a resident at [facility] and has a complex PMH who presents to the hospital with reported coffee ground emesis. Her CT scan shows fecal infection + distention of colon. 1. Coffee Ground emesis, acute blood loss anemia Patient evaluated by Gastroenterology underwent upper endoscopy that shows nonbleeding erosive esophagitis and a single 4 mm gastric erosion, will resume diet and treat patient with PPI bid for 1 month, And then daily, hematocrit remains stable, follow clinical course, DC IV fluid and DC IV Protonix. Will discharge back to snf if tolerate diet and no recurrent episodes of coffee- ground emesis. 2. Fecal impaction Patient moving bowels, CT abdomen showed fecal impaction with evidence of stercoral colitis at the rectum/sigmoid, significant distention of the colon 3. Schizoaffective / Bipolar disorder continue baseline meds, Remeron 15 mg, perphenazine, Depakote, Klonopin, Cogentin , Haldol and Neurontin 4. Dysphagia History of chronic dysphagia will place patient on pureed diet as per her request Full Code DVT pptx, mechanical due to GI bleed
[2020-12-22 14:18] VITALS: BP 103/60; PULSE 63; RESP 18; TEMP 35.9; O2SAT 97
[2020-12-22 15:32] VITALS: BP 103/60; PULSE 63; RESP 17; TEMP 35.9; O2SAT 97
[2020-12-22] MEDS: Omeprazole 20 MG CAPSULE.DR PO (16:31)
[2020-12-22 20:00] VITALS: BP 135/65; PULSE 82; RESP 17; TEMP 37.1; O2SAT 97
[2020-12-23] VITALS: BP 112/61; PULSE 62; RESP 18; TEMP 36.3; O2SAT 97
[2020-12-23 04:00] VITALS: BP 111/68; PULSE 61; RESP 18; TEMP 36.8; O2SAT 99
[2020-12-23] MEDS: Omeprazole 20 MG CAPSULE.DR PO ×2 (05:19→17:25)
[2020-12-23 06:37] LABS: MANUAL DIFF FLAG NO
[2020-12-23 07:06] LABS: Basophils Percent Auto 0.5 % (0-2); Eosinophils Absolute Auto 0.2 X10*3/uL (0.0-0.4); Eosinophils Percent Auto 2.4 % (0-4); Hematocrit 28.7 % (37-47); Hemoglobin 8.7 g/dl (12.0-16.0); Imm Gran Abs Auto 0.04 X10*3/uL (0.00-0.03); Imm Gran Pct Auto 0.7 % (0.0-0.4); Lymphocytes Absolute Auto 2.6 X10*3/uL (1.2-4.9); Lymphocytes Percent Auto 42.4 % (20-40); Mean Corpuscular HGB Conc 30.3 g/dl (31.0-35.0); Mean Corpuscular Hemoglobin 24.7 pg (27.0-33.0); Mean Corpuscular Volume 81.5 fL (80-98); Mean Platelet Volume 9.9 fL (9.4-12.3); Monocytes Absolute Auto 0.6 X10*3/uL (0.1-1.2); Monocytes Percent Auto 9.3 % (2-11); Neutrophils Absolute Auto 2.8 X10*3/uL (2.0-8.3); Neutrophils Percent Auto 44.7 % (45-73); Platelet Count 371 X10*3/uL (160-400); Red Blood Count 3.52 X10*6/uL (4.20-5.50); Red Cell Distribution Width 16.7 % (11.0-16.0); White Blood Count 6.2 X10*3/uL (4.8-10.8)
[2020-12-23 07:11] LABS: Anion Gap 15 (12-20); Blood Urea Nitrogen 9 mg/dL (9-16); Calcium 8.1 mg/dL (8.4-10.2); Carbon Dioxide 22 mmol/L (22-29); Chloride 111 mmol/L (96-108); Creatinine Clr Calc Pharmacy 121.8; Estimated Glomerular Filt Rate > 60; Glucose Random 86 mg/dL (60-115); Potassium 3.5 mmol/L (3.3-5.1); Sodium 144 mmol/L (135-145)
[2020-12-23 07:20] VITALS: BP 107/57; PULSE 61; RESP 20; TEMP 36.1; O2SAT 98
[2020-12-23] MEDS: 0.9 % Sodium Chloride Flush 3 ML SYRINGE IVFLUSH ×3 (08:02→21:25)
[2020-12-23] MEDS: polyethylene glycoL 3350 17 GM POWD.PACK PO (08:56)
[2020-12-23] MEDS: Docusate Sodium 100 MG CAPSULE 200 MG PO (08:56)
[2020-12-23] MEDS: Perphenazine 8 MG TABLET 16 MG PO (08:57)
[2020-12-23] MEDS: clonazePAM 0.5 MG TABLET PO ×2 (08:57→21:25)
[2020-12-23] MEDS: Perphenazine 8 MG TABLET PO (08:57)
[2020-12-23] MEDS: Divalproex Sodium Sprinkles 125 MG CAP.DR.SPR 500 MG PO ×2 (08:57→21:24)
[2020-12-23] MEDS: Benztropine Mesylate 0.5 MG TABLET PO ×2 (08:57→21:25)
[2020-12-23] MEDS: Mirtazapine 15 MG TABLET PO (08:57)
[2020-12-23] MEDS: Gabapentin 300 MG CAPSULE PO ×2 (08:57→21:25)
[2020-12-23] MEDS: HaloperidoL 5 MG TABLET 10 MG PO ×3 (08:58→21:25)
[2020-12-23 11:23] VITALS: BP 109/57; PULSE 65; RESP 20; TEMP 36.2; O2SAT 98
--- NOTE | 2020-12-23 12:41 | P.PNIM_ITS ---
Subjective Subjective Date of Service: 12/23/20 Interval History: No further episode of coffee-ground emesis, offers no acute complaints, noted to have drop in hematocrit 28.7, feels she does not have appetite. 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 Neck supple no JVD. CVS regular rate rhythm, Respiratory lungs clear to auscultation, no respiratory distress, no wheeze, no rhonchi. Gastrointestinal abdomen soft, no tenderness to palpation, bowel sounds audible, no guarding , no rigidity. Extremities no edema. Neuro moving all 4 extremity, speech clear. Skin no rash Objective Data Current Medications Generic Name Dose Route Start Last Admin Trade Name Maryana PRN Reason Stop Dose Admin Benztropine Mesylate 0.5 mg 12/21/20 09:00 12/23/20 08:57 Benztropine Mesylate 0.5 Mg Tablet PO 0.5 mg BID MARK Administration Bisacodyl 5 mg 12/23/20 21:00 Bisacodyl 5 Mg Tablet. PO BEDTIME MARK Clonazepam 0.5 mg 12/21/20 09:00 12/23/20 08:57 Clonazepam 0.5 Mg Tablet PO 0.5 mg BID MARK Administration Divalproex Sodium 500 mg 12/21/20 09:00 12/23/20 08:57 Divalproex Sodium Sprinkles 125 Mg Cap. PO 500 mg BID MARK Administration Docusate Sodium 200 mg 12/23/20 09:00 12/23/20 08:56 Docusate Sodium 100 Mg Capsule PO 200 mg DAILY MARK Administration Gabapentin 300 mg 12/21/20 09:00 12/23/20 08:57 Gabapentin 300 Mg Capsule PO 300 mg BID MARK Administration Haloperidol 10 mg 12/21/20 09:00 12/23/20 08:58 Haloperidol 5 Mg Tablet PO 10 mg TID MARK Administration Mirtazapine 15 mg 12/21/20 09:00 12/23/20 08:57 Mirtazapine 15 Mg Tablet PO 15 mg DAILY MARK Administration Omeprazole 20 mg 12/22/20 16:30 12/23/20 05:19 Omeprazole 20 Mg Capsule. PO 20 mg BID@6226,7805 MARK Administration Perphenazine 8 mg 12/21/20 09:00 12/23/20 08:57 Perphenazine 8 Mg Tablet PO 8 mg DAILY AMRK Administration Perphenazine 16 mg 12/21/20 09:00 12/23/20 08:57 Perphenazine 8 Mg Tablet PO 16 mg DAILY MARK Administration Polyethylene Glycol 17 gm 12/23/20 09:00 12/23/20 08:56 Polyethylene Glycol 3350 17 Gm Powd.Pack PO 17 gm DAILY MARK Administration Sodium Chloride 3 ml 12/21/20 00:00 12/23/20 08:02 0.9 % Sodium Chloride Flush 3 Ml Syringe IVFLUSH 3 ml QSHIFT MARK Administration Labs CBC & Chem 7: 12/23/20 06:16 12/23/20 06:16 Assessment and Plan (1) Coffee ground emesis: Status: Acute (2) Fecal impaction of rectum: Status: Acute (3) Proctitis: Status: Acute Assessment and Plan: 60 yo F who is a resident at [facility] and has a complex PMH who presents to the hospital with reported coffee ground emesis. Her CT scan shows fecal infection + distention of colon. 1. Coffee Ground emesis, acute blood loss anemia No recurrent bout of coffee-ground emesis, upper endoscopy showed nonbleeding erosive esophagitis and a single 4 mm gastric erosion, Tolerating pureed diet, continue PPI bid for 1 month, then daily Drop in hematocrit, no active GI bleed noted, will repeat CBC Will discharge back to snf if hematocrit remains stable, tolerate diet and no recurrent episodes of coffee-ground emesis. 2. Fecal impaction Patient moving bowels, CT abdomen showed fecal impaction with evidence of stercoral colitis at the rectum/sigmoid, significant distention of the colon with large volume of stool and gas Status post fecal disimpaction by surgery will add laxatives, need to be on bowel regimen to avoid recurrent constipation 3. Schizoaffective / Bipolar disorder continue baseline meds, Remeron 15 mg, perphenazine, Depakote, Klonopin, Cogentin , Haldol and Neurontin 4. Dysphagia History of chronic dysphagia continue pureed diet Full Code DVT pptx, mechanical due to GI bleed
[2020-12-23 15:00] VITALS: BP 145/64; PULSE 80; RESP 20; TEMP 36.4; O2SAT 99
[2020-12-23 19:56] VITALS: BP 124/65; PULSE 81; RESP 20; TEMP 36.1; O2SAT 97
[2020-12-23] MEDS: bisacodyL 5 MG TABLET.DR PO (21:25)
[2020-12-24] VITALS: BP 134/70; PULSE 83; RESP 20; TEMP 36.2; O2SAT 96
[2020-12-24 03:17] VITALS: BP 131/72; PULSE 71; RESP 20; TEMP 36.1; O2SAT 98
[2020-12-24 04:34] LABS: MANUAL DIFF FLAG NO
[2020-12-24 04:44] LABS: Basophils Percent Auto 0.5 % (0-2); Eosinophils Absolute Auto 0.1 X10*3/uL (0.0-0.4); Eosinophils Percent Auto 1.2 % (0-4); Hematocrit 30.1 % (37-47); Hemoglobin 9.2 g/dl (12.0-16.0); Imm Gran Abs Auto 0.03 X10*3/uL (0.00-0.03); Imm Gran Pct Auto 0.4 % (0.0-0.4); Lymphocytes Absolute Auto 2.7 X10*3/uL (1.2-4.9); Lymphocytes Percent Auto 36.1 % (20-40); Mean Corpuscular HGB Conc 30.6 g/dl (31.0-35.0); Mean Corpuscular Hemoglobin 24.7 pg (27.0-33.0); Mean Corpuscular Volume 80.7 fL (80-98); Mean Platelet Volume 9.7 fL (9.4-12.3); Monocytes Absolute Auto 0.8 X10*3/uL (0.1-1.2); Neutrophils Absolute Auto 3.9 X10*3/uL (2.0-8.3); Neutrophils Percent Auto 51.8 % (45-73); Platelet Count 381 X10*3/uL (160-400); Red Blood Count 3.73 X10*6/uL (4.20-5.50); Red Cell Distribution Width 16.5 % (11.0-16.0); White Blood Count 7.6 X10*3/uL (4.8-10.8)
[2020-12-24] MEDS: Omeprazole 20 MG CAPSULE.DR PO (06:00)
[2020-12-24 07:48] VITALS: BP 123/74; PULSE 61; RESP 16; TEMP 36.1; O2SAT 99
[2020-12-24] MEDS: Mirtazapine 15 MG TABLET PO (08:43)
[2020-12-24] MEDS: 0.9 % Sodium Chloride Flush 3 ML SYRINGE IVFLUSH (08:43)
[2020-12-24] MEDS: polyethylene glycoL 3350 17 GM POWD.PACK PO (08:43)
[2020-12-24] MEDS: clonazePAM 0.5 MG TABLET PO (08:43)
[2020-12-24] MEDS: HaloperidoL 5 MG TABLET 10 MG PO (08:44)
[2020-12-24] MEDS: Benztropine Mesylate 0.5 MG TABLET PO (08:44)
[2020-12-24] MEDS: Gabapentin 300 MG CAPSULE PO (08:44)
[2020-12-24] MEDS: Perphenazine 8 MG TABLET PO (08:44)
[2020-12-24] MEDS: Divalproex Sodium Sprinkles 125 MG CAP.DR.SPR 500 MG PO (08:44)
[2020-12-24] MEDS: Perphenazine 8 MG TABLET 16 MG PO (08:44)
[2020-12-24] MEDS: Docusate Sodium 100 MG CAPSULE 200 MG PO (08:44)
--- NOTE | 2020-12-24 09:15 | MHC.CM.PN ---
Addendum entered by Baylee Carbone 12/24/20 10:11: VM LEFT FOR PTS LEGAL GUARDIAN, AMINAH KNOX ([phone]) INFORMING HER OF PTS DC. PT WILL DC BACK TO [facility]IA [facility] PENDING COVID TEST RESULTS. Original Note: PER HOSPITALIST, PT LIKELY TO DC TODAY. CM CONTACTED [facility] AND INFORMED THEM OF PENDING DC. CLINICAL UPDATES WERE SENT FOR REVIEW WELL. CM WILL CONTACT PTS LEGAL GUARDIAN ONCE DC IS CONFIRMED AND TIME IS SCHEDULED. PT WILL DC BACK TO LTC AT [facility] VIA BLS.
--- NOTE | 2020-12-24 09:51 | P.DS_ITS ---
DS: Providers Provider Date of Service: 12/24/20 Date of admission: 12/20/20 21:33 Primary care physician: Jazzy Avina Consults: 12/20/20 21:35 Consult to Gastroenterology Routine Consulting Provider: Kit Sheehan Reason for consultation: coffee ground emesis 12/21/20 08:10 Consult to General Surgery Routine Consulting Provider: Ricardo Le Reason for consultation: fecal impaction/distended bowel Has provider been notified: No DS: Diagnosis Discharge Diagnosis (1) Coffee ground emesis: Status: Acute (2) Fecal impaction of rectum: Status: Acute (3) Proctitis: Status: Acute DS: Medications Discharge Medications Home Medications: Home Medications Medication Instructions Recorded Confirmed acetaminophen 1,000 mg PO BID PRN 12/20/20 12/20/20 benztropine 0.5 mg PO BID 12/20/20 12/20/20 bisacodyl 5 mg PO DAILY 12/20/20 12/20/20 clonazepam [Klonopin] 0.5 mg PO BID 12/20/20 12/20/20 divalproex [Depakote Sprinkles] 500 mg PO BID 12/20/20 12/20/20 gabapentin 300 mg PO BID 12/20/20 12/20/20 haloperidol 10 mg PO TID 12/20/20 12/20/20 mirtazapine [Remeron] 15 mg PO DAILY 12/20/20 12/20/20 perphenazine 8 mg PO DAILY 12/20/20 12/20/20 perphenazine 16 mg PO DAILY 12/20/20 12/20/20 Previous Rx's Medication Instructions Recorded omeprazole 40 mg PO BID@0630,1630 #60 cap 12/24/20 polyethylene glycol 3350 17 g PO DAILY #30 ea 12/24/20 DS: Summary Hospital Course Hospital Course: History of presenting illness Chief Complaint: Coffee-ground emesis 60-year-old female with a past medical history of cerebral palsy, cognitive delay, obesity, schizoaffective disorder, borderline personality disorder, history of paralytic ileus, migraines, GERD, history of chronic back pain/leg pain, asthma, anemia, history of recurrent intertrigo, urinary incontinence, dysphagia, history of esophagitis, history of gastric body erosions, peptic ulcer disease status post Billroth procedure presented to the hospital today with a chief complaint of coffee-ground emesis. Patient is a poor historian. Most of the history obtained from the ER staff and records. Tried to reach the patient's nursing home facility -[facility]; I also called patient's guardian Milla, left voice message. Per ER team patient had like 4 episodes of coffee-ground emesis; patient mentions she has abdominal discomfort. Appears to be comfortable alert and awake. ER course: Per ER team patient's stool guaiac was negative hemoglobin stable at 11.4. Vitals stable. Given pantoprazole. Admitted to the hospital for further management ER team mentioned that this spoke to Dr. sheehan from Gastroenterology who mention to keep the patient NPO for possible EGD in the morning Hospital course 60 yo F who is a resident at [facility] and has a complex PMH who presents to the hospital with reported coffee ground emesis. Her CT scan shows fecal infection + distention of colon. 1. Coffee Ground emesis, and acute blood loss anemia Patient admitted to intermediate care unit and underwent upper endoscopy that showed nonbleeding erosive esophagitis and a single 4 mm gastric erosion, postprocedure patient placed on Prilosec twice daily, patient had no recurrent bout of emesis in last 48 hours therefore being discharged home on Prilosec type twice daily for 1 month and then Prilosec once daily indefinitely, avoid aspirin and NSAID Patient is tolerating pureed diet, hematocrit dropped but remained stable did not require blood transfusion. 2. Fecal impaction of rectum, CT abdomen showed fecal impaction with evidence of stercoral colitis at the rectum/sigmoid, significant distention of the colon with large volume of stool and gas Status post fecal disimpaction by surgery, patient moving bowels has been started on MiraLax continue bisacodyl , recommend fluids and ambulation 3. Schizoaffective / Bipolar disorder continue baseline meds, Remeron 15 mg, perphenazine, Depakote, Klonopin, Cogentin , Haldol and Neurontin 4. Dysphagia patient has history chronic dysphagia continue previous diet Time Spent with Patient Time attestation: Total time spent providing and/or coordinating discharge services: Discharge coordination time: Greater than 30 minutes Physical Exam Vital Signs: Vital Signs: Last Vital Signs Temp 97 F 12/24/20 07:48 Pulse 61 12/24/20 07:48 Resp 16 12/24/20 07:48 BP 123/74 12/24/20 07:48 Pulse Ox 99 12/24/20 07:48 Body Mass Index 34.4 General resting comfortably in no acute distress. Neck supple no JVD. CVS regular rate rhythm, Respiratory lungs clear to auscultation, no respiratory distress, no wheeze, no rhonchi. Gastrointestinal abdomen soft, no tenderness to palpation, bowel sounds audible, no guarding , no rigidity. Extremities no edema. Neuro moving all 4 extremity, speech clear. Skin no rash DS: Data Data Completed and Pending Labs on day of discharge: Laboratory Results - last 24 hr 12/24/20 04:11 WBC 7.6 RBC 3.73 L Hgb 9.2 L Hct 30.1 L MCV 80.7 MCH 24.7 L MCHC 30.6 L RDW 16.5 H Plt Count 381 MPV 9.7 Immature Gran % (Auto) 0.4 Neut % (Auto) 51.8 Lymph % (Auto) 36.1 [place] % (Auto) 10.0 Eos % (Auto) 1.2 Baso % (Auto) 0.5 Lymph # (Auto) 2.7 [place] # (Auto) 0.8 Eos # (Auto) 0.1 Baso # (Auto) 0.0 Abs Immat Gran (auto) 0.03 Absolute Neuts (auto) 3.9 Absolute Nucleated RBC 0.000 Nucleated RBC % (auto) 0.0 Discharge Plan Discharge Patient Disposition: [facility] Discharge Diagnosis: Coffee-ground emesis/acute blood loss anemia Referrals: Jazzy Avina [Primary Care Provider] - 1 Week Discharge Medications: New polyethylene glycol 3350 17 gram Powder In Packet 17 g PO DAILY Qty: 30 RF: 0 omeprazole 20 mg Capsule,Delayed Release(Dr/Ec) 40 mg PO BID@0630,1630 Qty: 60 RF: 0 Continued benztropine 0.5 mg Tablet 0.5 mg PO BID RF: 0 clonazepam [Klonopin] 0.5 mg Tablet 0.5 mg PO BID RF: 0 haloperidol 10 mg Tablet 10 mg PO TID RF: 0 gabapentin 300 mg Capsule 300 mg PO BID RF: 0 mirtazapine [Remeron] 15 mg Tablet 15 mg PO DAILY RF: 0 perphenazine 8 mg Tablet 8 mg PO DAILY RF: 0 divalproex [Depakote Sprinkles] 125 mg Capsule, Delayed Rel Sprinkle 500 mg PO BID RF: 0 acetaminophen 500 mg Capsule 1,000 mg PO BID PRN (Reason: Pain) RF: 0 perphenazine 16 mg Tablet 16 mg PO DAILY RF: 0 bisacodyl 5 mg Tablet 5 mg PO DAILY RF: 0 Discontinued omeprazole 20 mg Capsule,Delayed Release(Dr/Ec) 20 mg PO BID RF: 0 Discharge Orders: Discharge Order (Routine); Ordered 12/24/20 Ordered By: Jose Manuel Mckinney Diet: regular diet Activity on Discharge: As tolerated Stand Alone Forms: Patient Portal Discharge page Care Plan Goals: As above Health Concerns: You diagnosed to have Esophagitis/constipation take Prilosec 40 mg twice daily for 1 month then change to 1 tablet daily, avoid constipation drink fluids add more stool softeners as needed, hematocrit dropped but remained stable no blood transfusion required Plan of Treatment: Outpatient follow-up with PCP Assessment: As per discharge med
[2020-12-24 10:22] LABS: COVID-19 Test Negative (Negative); IDNOW Serial# 9DD0AD1C
== END 2020-12-24 12:13 | disposition skilled nursing facility (03) | DRG 242 ==
LOC: HO.ED 18:49 → HO.EDOVER 21:59 → HO.IMC 22:53
PROVIDERS: Family Medicine; Internal Medicine Gastroenterology; Physician Assistant; Physician Assistant Medical; Admitting Provider Hospitalist; Emergency Provider Internal Medicine; Visit Provider Hospitalist
PROC: 0DJ08ZZ Inspection of Upper Intestinal Tract, Via Natural or Artificial Opening Endoscopic (ICD-10-PCS; CPT 43235; principal; 2020-12-21 13:30)
DX: K22.11 Ulcer of esophagus with bleeding (principal); D62 Acute posthemorrhagic anemia; K21.9 Gastro-esophageal reflux disease without esophagitis; F25.9 Schizoaffective disorder, unspecified; R13.10 Dysphagia, unspecified; G80.9 Cerebral palsy, unspecified; K56.41 Fecal impaction; K62.89 Other specified diseases of anus and rectum; Z79.899 Other long term (current) drug therapy
CPT/HCPCS: 43235; 36415; 74176; 80048; 80053; 80076; 82272; 83690; 85014; 85018; 85025; 85027; 85610; 85730; 86850; 86900; 86901; 87635; 93005; 96374; 96375; 99285; J2060

== ENCOUNTER 2023-04-28 13:15 | Outpatient (AMB) | payer MEDICAID, SELFPAY ==
--- NOTE | 2023-04-28 13:55 | MHC.OFFVIS ---
Intake Intake Visit Reasons: RIP/MOULD OPERATOR- B/L Hand Contractures Intake Note: Lesia 62 yr old female presents today for contracture of bilateral hands. Difficulty communicating with patient due to speech impairment. Allergies baclofen Allergy (Unknown, Unverified 04/28/23 13:57) Unknown Iodinated Contrast Media Allergy (Unknown, Verified 04/28/23 13:57) Unknown HPI RIP/MOULD OPERATOR- B/L Hand Contractures HPI Details Lesia is a 62 year old right hand dominant woman who presents with complaints of bilateral hand contractures. She has cerebral palsy, schizoaffective disorder and borderline personality disorder She lives in a fpc and was seen here today in a stretcher. She was brought in today by two attendants by ambulance company who know nothing about her condition or why she is here She did not show up with a consult sheet explaining why she is here She is relatively non-verbal She was able to tell me that she thinks she knows me but was not able to effectively communicate about why she is here. [facility] Medical History (Updated 04/28/23 @ 14:10 by Brent Hansen) Abscess of toe, right Anemia Asthma Atherosclerosis Borderline personality disorder Cerebral palsy Chronic back pain Dysphagia Esophagitis GERD (gastroesophageal reflux disease) Migraines Obesity Paralytic ileus PVD (peripheral vascular disease) Schizoaffective disorder Urinary incontinence UTI (urinary tract infection) Social History Housing: Alf Unable to assess alcohol history related to: Unknown Alcohol intake: never service: No Current occupational status: disabled Review of Systems Const All systems reviewed & are unremarkable except as noted in HPI and below Physical Exam Const General: cooperative, healthy appearing and no acute distress Orientation/consciousness: patient oriented x3 HEENT Head: Yes normocephalic and Yes atraumatic Eyes EOM: EOMs intact bilaterally Resp Effort & Inspection: normal respiratory effort and able to speak in complete sentences Cardio Jugular venous distension: no JVD Skin General skin exam: turgor normal Rashes: no rashes Neuro General: patient oriented x3 Extrem Other: Evaluation of bilateral Upper Extremity: The patient is alert, and in no acute distress She is lying on a stretcher. Vascular: Cap refill brisk ROM: Both of her upper extremities are held adducted and with only mild flexion at the elbows. Her left wrist is flexed to ~90 degrees, thumb in palm Her right wrist is flexed to ~40 degrees, thumb in palm Thumb in palm deformity with tight flexion of fingers bilaterally Any attempts to try and decrease the flexion contractures or open up her fingers is met by discomfort and resistance She does not want her hands to be evaluated She does not appear to have any voluntary control of hands She appears to have a small blister between the proximal phalanx of index and middle fingers. This appears to be healing with no evidence of infection but she would not allow me to open her fingers to better evaluate the skin of her palm General: No Ecchymosis. No Erythema or evidence of infection. Psych Appearance: grossly normal Affect: normal affect Attitude: cooperative Assessment & Plan Assessment & Plan (1) Contracture of joint of both hands: Code(s): M24.541 - Contracture, right hand; M24.542 - Contracture, left hand (2) Schizoaffective disorder: Code(s): F25.9 - Schizoaffective disorder, unspecified (3) Borderline personality disorder: Code(s): F60.3 - Borderline personality disorder (4) Cerebral palsy: Code(s): G80.9 - Cerebral palsy, unspecified Plan Assessment & Plan: 1. Bilateral hand, wrist, and thumb flexion contractures With thumb in palm deformities, secondary to her cerebral palsy Her left wrist is flexed to ~90 degrees, thumb in palm Her right wrist is flexed to ~40 degrees, thumb in palm I educated her about this condition She may require something like a superficialis to perfundus tendon transfers to decrease contractures to allow for basic care & hygiene for her hands Due to the complexity of this issue and her other medical comorbidities, her best care would come from a facility like [facility] Tracee will work on this referral Scribed for Tahmina Desai MD by Brent Hansen, medical officer psychiatry, on 04/28/23 at 2:10 PM, EST. Coding Level of Care Code New Pt Level 3 (90751) Diagnoses Contracture of joint of both hands M24.541; M24.542 Schizoaffective disorder F25.9 Borderline personality disorder F60.3 Cerebral palsy G80.9
== END 2023-04-28 14:23 | disposition home or self-care (01) ==
PROVIDERS: Visit Provider Orthopaedic Surgery
DX: M24.541 Contracture, right hand (principal); M24.542 Contracture, left hand
CPT/HCPCS: 99203

== ENCOUNTER → 2023-04-28 13:15 | Outpatient (BNVA) | payer MEDICAID, SELFPAY | PROVIDERS: Visit Provider Orthopaedic Surgery | DX: M24.541 Contracture, right hand (principal); M24.542 Contracture, left hand; F25.9 Schizoaffective disorder, unspecified; F60.3 Borderline personality disorder; G80.9 Cerebral palsy, unspecified | CPT/HCPCS: 99202 ==